=== PATIENT | female | born 1990 | race African-American/Black ===

== ENCOUNTER 2023-05-24 05:37 | Emergency (ER) | payer OTHER ==
[2023-05-24] MEDS ORDERED: diphenhydrAMINE 50 MG/ML VIAL ONE (07:59)
[2023-05-24] MEDS ORDERED: Metoclopramide HCl 10 MG/2 ML VIAL ONE (07:59)
== END 2023-05-24 09:35 | disposition home or self-care (01) ==
LOC: ERS 05:37
DX: S06.0X0A Concussion without loss of consciousness, initial encounter (principal); G43.709 Chronic migraine without aura, not intractable, without status migrainosus; W22.8XXA Striking against or struck by other objects, initial encounter; Y93.89 Activity, other specified; Y92.69 Other specified industrial and construction area as the place of occurrence of the external cause
CPT/HCPCS: 70450; 72125; 96365; 96366; 96375; J1200; J2765